=== PATIENT | male | born 1980 | race Caucasian/White ===

== ENCOUNTER 2018-03-16 06:50 | Emergency (ER) | payer MEDICARE, MEDICAID ==
[~2018-03-16] VITALS: Ht 167.6 cm; Wt 98.6 kg
[2018-03-16 07:07] VITALS: BP 108/71; Ht 167.6 cm; Wt 98.6 kg
[2018-03-16] MEDS ORDERED: TENORMIN25 MG PO (07:22)
[2018-03-16] MEDS ORDERED: MINOCIN100 MG PO (07:32)
== END 2018-03-16 07:48 | disposition home or self-care (01) ==
LOC: D.ER 06:50
DX: L08.9 Local infection of the skin and subcutaneous tissue, unspecified (principal); F84.0 Autistic disorder; I10 Essential (primary) hypertension